=== PATIENT | female | born 1935 | race African-American/Black ===

== ENCOUNTER → 2019-12-20 | Outpatient (CLI) | payer MEDICARE, OTHER ==
[~2019-12-20] MED LIST: ATEN25TA PO; HYDR-2145 PO; LEVO150T5 PO; LISI10TA2 PO; POTA99TA10 PO; PRAV40TA2 PO; WARF5TAB2 PO
--- NOTE | 2019-12-20 11:51 | KCIC ---
Bone Densitometry History: Reason: POST MENOPAUSAL, THYROID DISORDER Findings: Bone Densitometry was performed with dual photon absorption of the lumbar spine and left proximal femur. Lumbar Spine: Bone density is 1.118 g/cm2 for L1-L4. T-score is 0.6. Z-score is 2.9. Left total femur: Bone density is 0.782 g/cm2. T-score is -1.3. Z-score is 0.2. IMPRESSION: 1. Normal bone mineral density of the lumbar spine. 2. Osteopenia of the left femur. World [employer] Organization definition of osteoporosis and osteopenia for women: normal equals T score at or above -1.0 standard deviations; osteopenia equals T score between -1.0 and -2.5 standard deviations; osteoporosis equals T score at or below -2.5 standard deviations. Electronically signed by: Viktor Downing MD (12/20/2019 11:48 AM) [id number]
== END | disposition home or self-care (01) ==
LOC: KCIC DEXA 11:08
PROVIDERS: ATTEND Nurse Practitioner Family
DX: M85.852 Other specified disorders of bone density and structure, left thigh (principal); N95.9 Unspecified menopausal and perimenopausal disorder
CPT/HCPCS: 77080